=== PATIENT | female | born 1995 | race Caucasian/White ===

== ENCOUNTER 2018-08-23 05:41 | Day surgery (SDC) | payer MEDICAID ==
[2018-08-23] MEDS ORDERED: MARCAINE 0.5% INFILTRATI ONE ×2 (06:35→08:08)
[2018-08-23] MEDS ORDERED: DILAUDID IV PRN (07:08)
--- NOTE | 2018-08-23 07:12 | Anesthesia Day of Surgery ---
Anesthesia Day of Surgery - Day of Surgery Patient Examined: Yes Patient H&P Reviewed: Yes Patient is NPO: Yes
--- NOTE | 2018-08-23 07:12 | Anesthesia Consultation ---
Anesthesia Consult and Med Hx Date of service: 08/23/18 - Airway Anesthetic Teeth Evaluation: Good ROM Head & Neck: Adequate Mental/Hyoid Distance: Adequate Mallampati Class: Class I Intubation Access Assessment: Good - Pulmonary Exam CTA: Yes - Cardiac Exam Cardiac Exam: RRR - Pre-Operative Health Status ASA Pre-Surgery Classification: ASA1 - Pulmonary Hx Smoking: No Hx Respiratory Symptoms: No Hx Sleep Apnea: No - Cardiovascular System Hx Hypertension: No Hx Heart Attack/AMI: No Hx Percutaneous Transluminal Coronary Angioplasty (PTCA): No Hx Cardia Arrhythmia: No Hx Valvular Heart Disease: No - Central Nervous System Hx Seizures: No CVA: No - Gastrointestinal Hx Gastroesophageal Reflux Disease: No - Endocrine Hx Renal Disease: No Hx Liver Disease: No Hx Insulin Dependent Diabetes: No Hx Non-Insulin Dependent Diabetes: No Hx Thyroid Disease: No - Other Systems Hx Obesity: No - Additional Comments Anesthesia Medical History Comments: No prior GA. No FHx anesthetic complications.
[2018-08-23] MEDS ORDERED: TRANSDERM-SCOP TD ONE (07:18)
[2018-08-23] MEDS ORDERED: DILAUDID ONE (07:22)
--- NOTE | 2018-08-23 07:22 | Short Stay Summary ---
Short Stay Documentation Date of service: 08/23/18 Narrative H&P: 23y/o with undesired fertility. The patient is aware of other contraceptive options and elects to undergo permanent sterilization. - History Principal diagnosis: Undesired fertility Past Medical History: migraines Past Surgical History: No surgical history Social history: - Allergies and Medications Current Medications: Allergies No Known Allergies Allergy (Verified 08/09/18 14:17) Home Medications Medication Instructions Recorded Confirmed Last Taken Type No Known Home Medications [No 08/09/18 08/09/18 Unknown History Reported Home Medications] Active Medications Celecoxib (Celebrex) 200 mg PO PREOP NR Stop: 08/23/18 20:00 Gabapentin (Neurontin) 300 mg PO PREOP NR Stop: 08/23/18 20:00 Hydromorphone HCl (Dilaudid) 0.5 mg IV Q10MIN PRN PRN Reason: Pain , Severe (7-10) Stop: 08/23/18 20:00 Lactated Ringer's (Lactated Ringers) 1,000 mls @ 100 mls/hr IV DIRECT RASHEL Midazolam HCl (Versed) 2 mg IV PREOP NR Stop: 08/23/18 23:59 Scopolamine (Transderm-Scop) 1 each TD PREOP NR Stop: 08/23/18 20:00 - Physical exam General appearance: no acute distress Integumentary: no rash HEENT: Atraumatic Lungs: Clear to auscultation Breasts: deferred Heart: Regular rate Gastrointestinal: normal Female Genitourinary: deferred Rectal Exam: deferred Extremities: no ischemia Neurological: Normal gait - Brief post op/procedure progress note Date of procedure: 08/23/18 Pre-op diagnosis: undesired fertility Post-op diagnosis: same Procedure: Laparoscopic bilateral tubal ligation with Filshie clips Anesthesia: GETA Surgeon: ORESTES KNIGHT Estimated blood loss: none Pathology: none Condition: stable - Hospital course Hospital course: The patient was admitted the day of surgery and went underwent a laparoscopic bilateral tubal ligation. Please see operative note for details of surgery. Her postoperative course was uneventful. - Disposition Condition at discharge: Good Disposition: DC-01 TO HOME OR SELFCARE Short Stay Discharge Plan Activity: other (pelvic rest for 1 week) Diet: regular Additional Instructions: Follow-up is not required Follow-up as needed Prescriptions: Ibuprofen [Motrin] 800 mg PO Q8HR PRN #60 tablet PRN Reason: Pain, Mild (1-3) oxyCODONE /ACETAMINOPHEN [Percocet 5/325] 1 tab PO Q6HR PRN #20 tablet PRN Reason: Pain
[2018-08-23] MEDS ORDERED: DIPRIVAN 10 MG/ML IV ONE (07:23)
[2018-08-23] MEDS ORDERED: XYLOCAINE MPF 2% ONE (07:25)
[2018-08-23] MEDS ORDERED: ZEMURON IV ONE (07:27)
[2018-08-23] MEDS ORDERED: NEURONTIN PO NR (08:00)
[2018-08-23] MEDS ORDERED: TRANSDERM-SCOP TD NR (08:00)
[2018-08-23] MEDS ORDERED: VERSED IV NR (08:00)
[2018-08-23] MEDS ORDERED: LACTATED RINGERS 1,000 ML IV SCH (08:00)
--- NOTE | 2018-08-23 08:17 | Operative Report ---
Operative Report Operative Report: Date of surgery: 08/23/2018 Preoperative diagnosis: Unwanted fertility Postoperative diagnosis: Same as above Procedure: Laparoscopic bilateral tubal ligation with Filshie clips Surgeon: Malena Lemus M.D. Anesthesia: General endotracheal anesthesia Estimated blood loss: Minimal Findings: Normal uterus tubes and ovaries Indication: 23-year-old with undesired fertility. Procedure: The patient was taken to the operating room and given general endotracheal anesthesia without complication. The patient is prepped and draped in a normal sterile fashion. A bivalve speculum was placed in the patient's vagina and a single-tooth tenaculum was placed on the anterior lip of the cervix .A uterine acorn manipulator was placed, and the bivalve speculum was then removed. Attention was then turned to the patient's abdomen where a 5 mm infraumbilical skin incision was then made. A Veress needle was placed and peritoneal entry was verified water-filled syringe. Insufflation of the peritoneal cavity was performed with CO2 gas. A 5 mm trocar was placed and the laparoscope was then inserted. The patient was then placed in Trendelenburg. A 7 mm suprapubic skin incision was then made. Under direct visualization a 7 mm trocar was then placed. General survey of the patient's abdomen revealed normal uterus tubes and ovaries. The fallopian tube was then followed out to the fimbriated end. A Filshie clip was placed, on the ampullary portion of the tube. This was performed on the contralateral side as well. The 7 mm trocar was then removed. The pneumoperitoneum was then released. The 5 mm trocar laparoscope was then removed. The skin incisions were then closed with 4-0 Mon ocryl. The incisions were injected with quarter percent Marcaine. Dressings were applied to the incision. The vaginal instruments were then removed atraumatically. Then successfully extubated and taken to the recovery room. All sponge laps and needle counts were correct 2.
[2018-08-23] MEDS ORDERED: BLOXIVERZ ONE (08:27)
[2018-08-23] MEDS ORDERED: ROBINUL ONE (08:27)
[2018-08-23] MEDS ORDERED: ZOFRAN ONE (08:27)
[2018-08-23] MEDS ORDERED: TORADOL ONE (08:27)
[2018-08-23] MEDS ORDERED: PERCOCET 5/325 PO ONE (08:50)
[2018-08-23] MEDS ORDERED: PERCOCET 5/325 ONE (08:52)
[2018-08-23 09:08] VITALS: BP 107/74
--- NOTE | 2018-08-23 16:36 | Post Anesthesia Evaluation ---
- Post Anesthesia Evaluation Patient Participated: Yes Airway Patent: Yes Stable Respiratory Function: Yes Nausea/Vomiting: No Temp > 96.8F: Yes Pain Manageable: Yes Adequeate Hydration: Yes Anesthesia Complications: No
== END 2018-08-23 05:42 | disposition home or self-care (01) ==
LOC: OR 05:41
PROVIDERS: ATTEND Obstetrics & Gynecology
DX: Z30.2 Encounter for sterilization (principal); G43.909 Migraine, unspecified, not intractable, without status migrainosus; Z83.3 Family history of diabetes mellitus; Z79.899 Other long term (current) drug therapy; Z82.49 Family history of ischemic heart disease and other diseases of the circulatory system
CPT/HCPCS: 58671; 81025; 86850; 86900; 86901; J1170; J1885; J2250; J2405; J2704; J2710; J7120

== ENCOUNTER 2019-08-01 06:50 | Day surgery (SDC) | payer MEDICAID ==
--- NOTE | 2019-07-31 17:56 | Short Stay Summary ---
Short Stay Documentation Date of service: 08/01/19 Narrative H&P: 24y/o with a history of chronic pelvic pain. Pelvic ultrasound performed was unremarkable. Patient has elected for surgical management. Patient has been reassessed/reevaluated/re-examined. H&P has been reviewed. No interval changes. - History Principal diagnosis: Chronic pelvic pain Past Medical History: No medical history Past Surgical History: Other (tubal ligation) Social history: single - Allergies and Medications Current Medications: Allergies No Known Allergies Allergy (Verified 07/25/19 16:10) Home Medications Medication Instructions Recorded Confirmed Last Taken Type No Known Home Medications [No 07/25/19 07/25/19 Unknown History Reported Home Medications] - Physical exam General appearance: no acute distress Integumentary: no rash HEENT: Atraumatic Lungs: Clear to auscultation Breasts: deferred Heart: Regular rate Gastrointestinal: normal Female Genitourinary: deferred Rectal Exam: deferred - Brief post op/procedure progress note Date of procedure: 08/01/19 Pre-op diagnosis: Chronic pelvic pain Post-op diagnosis: same Procedure: Diagnostic laparoscopy Anesthesia: GETA Surgeon: ORESTES KNIGHT Estimated blood loss: none Pathology: none Condition: stable - Hospital course Hospital course: The patient was admitted the day of surgery and underwent a diagnostic laparoscopy. Please see operative note for details of surgery. Her postoperative course was uneventful. - Disposition Condition at discharge: Good Disposition: DC-01 TO HOME OR SELFCARE - Discharge Diagnoses (1) Chronic pelvic pain in female Status: Acute Short Stay Discharge Plan Activity: other (Pelvic rest for 1 week) Diet: regular Additional Instructions: Schedule follow-up with Dr. Knight in 2 weeks Prescriptions: Ibuprofen [Motrin] 800 mg PO Q8HR PRN #60 tablet PRN Reason: Pain , Severe (7-10) oxyCODONE /ACETAMINOPHEN [Percocet 5/325] 1 tab PO Q6HR PRN #15 tablet PRN Reason: Pain
[2019-08-01] MEDS ORDERED: BUPIVACAINE/PF (0.5%) 5 MG/1 ML 30 ML VIAL INFILTRATI ONE ×3 (07:11→09:04)
[2019-08-01] MEDS ORDERED: fentaNYL 100 MCG/2 ML INJ IV PRN (08:07)
[2019-08-01] MEDS ORDERED: ONDANSETRON 4 MG/2 ML INJ IV PRN (08:07)
[2019-08-01] MEDS ORDERED: ACETAMINOPHEN 500 MG TAB PO NR (08:08)
[2019-08-01] MEDS ORDERED: MAGNESIUM OXIDE 400 MG TAB PO NR (08:08)
--- NOTE | 2019-08-01 08:09 | Anesthesia Day of Surgery ---
Anesthesia Day of Surgery - Day of Surgery Patient Examined: Yes Patient H&P Reviewed: Yes Patient is NPO: Yes
--- NOTE | 2019-08-01 08:12 | Anesthesia Consultation ---
Anesthesia Consult and Med Hx Date of service: 08/01/19 - Airway Anesthetic Teeth Evaluation: Chipped ROM Head & Neck: Adequate Mental/Hyoid Distance: Adequate Mallampati Class: Class II Intubation Access Assessment: Good - Pre-Operative Health Status ASA Pre-Surgery Classification: ASA1 Proposed Anesthetic Plan: General - Pulmonary Hx Respiratory Symptoms: No - Cardiovascular System Hx Cardia Arrhythmia: No - Central Nervous System Hx Psychiatric Problems: No - Gastrointestinal Hx Gastroesophageal Reflux Disease: No - Endocrine Hx Insulin Dependent Diabetes: No Hx Non-Insulin Dependent Diabetes: No Hx Thyroid Disease: No - Other Systems Hx Cancer: No
[2019-08-01] MEDS ORDERED: propofoL 200 MG/20 ML VIAL IV ONE (08:14)
[2019-08-01] MEDS ORDERED: LIDOCAINE PF 100 MG/5 ML (CARDIAC SYRINGE) IV ONE (08:14)
[2019-08-01] MEDS ORDERED: SUCCINYLCHOLINE CHLORIDE 200 MG/10 ML INJ MDV ONE (08:16)
[2019-08-01] MEDS ORDERED: ROCURONIUM 50 MG/5 ML INJ IV ONE (08:16)
[2019-08-01] MEDS ORDERED: CELECOXIB 200 MG CAP PO SCH (09:00)
[2019-08-01] MEDS ORDERED: LACTATED RINGERS 1,000 ML IV SCH (09:00)
[2019-08-01] MEDS ORDERED: CELECOXIB 200 MG CAP PO NR (09:00)
[2019-08-01] MEDS ORDERED: MIDAZOLAM 2 MG/2 ML INJ IV NR (09:00)
[2019-08-01] MEDS ORDERED: SODIUM CHLORIDE 0.9% IRR 1,000 ML BOTTLE IR ONE (09:04)
[2019-08-01] MEDS ORDERED: SUGAMMADEX SODIUM 200 MG/2 ML VIAL IV ONE (09:19)
--- NOTE | 2019-08-01 09:26 | Operative Report ---
Operative Report Operative Report: Date of surgery: August 01, 2019 Preoperative diagnosis: Chronic pelvic pain in female Postoperative diagnosis: Same as above Procedure: Diagnostic laparoscopy Surgeon: Malena Lemus M.D. Anesthesia: General endotracheal anesthesia Estimated blood loss: Minimal Findings: Normal uterus tubes and ovaries Indication: 24-year-old -0-0-2 with a history of chronic pelvic pain Procedure: The patient was taken to the operating room and given general endotracheal anesthesia without complication. The patient is prepped and draped in a normal sterile fashion. A bivalve speculum was placed in the patient's vagina and a single-tooth tenaculum was placed on the anterior lip of the cervix .A uterine acorn manipulator was placed, and the bivalve speculum was then removed. Attention was then turned to the patient's abdomen where a 5 mm infraumbilical skin incision was then made. A Veress needle was placed and peritoneal entry was verified water-filled syringe. Insufflation of the peritoneal cavity was performed with CO2 gas. A 5 mm trocar was placed and the laparoscope was then inserted. The patient was then placed in Trendelenburg. A 5 mm suprapubic skin incision was then made. Under direct visualization a 5 mm trocar was then placed. General survey of the patient's abdomen revealed normal uterus tubes and ovaries. No evidence of pelvic adhesive disease or endometriotic implants. The 5 mm trocar was then removed. The pneumoperitoneum was then released. The 5 mm trocar laparoscope was then removed. The skin incisions were then closed with 4-0 Monocryl. The incisions were injected with quarter percent Marcaine. Dressings were applied to the incision. The vaginal instruments were then removed atraumatically. Then successfully extubated and taken to the recovery room. All sponge laps and needle counts were correct x 2.
[2019-08-01] MEDS ORDERED: oxyCODONE /ACETAMINOPHEN 5-325MG TAB PO PRN (09:50)
[2019-08-01 10:35] VITALS: BP 118/73
--- NOTE | 2019-08-01 10:38 | Post Anesthesia Evaluation ---
- Post Anesthesia Evaluation Patient Participated: Yes Airway Patent: Yes Stable Respiratory Function: Yes Nausea/Vomiting: No Temp > 96.8F: Yes Pain Manageable: Yes Adequeate Hydration: Yes Anesthesia Complications: No Block Receding Appropriately: Not Applicable Patient on Ventilator: No
== END 2019-08-01 10:45 | disposition home or self-care (01) ==
LOC: OR 06:50
PROVIDERS: ATTEND Obstetrics & Gynecology
DX: R10.2 Pelvic and perineal pain (principal); G89.29 Other chronic pain; Z79.899 Other long term (current) drug therapy; G43.909 Migraine, unspecified, not intractable, without status migrainosus; Z98.51 Tubal ligation status; Z82.49 Family history of ischemic heart disease and other diseases of the circulatory system; Z98.890 Other specified postprocedural states; Z83.3 Family history of diabetes mellitus
CPT/HCPCS: 49320; 81025; J0330; J2001; J2250; J2704; J3010; J7120